=== PATIENT | female | born 1930 | race African-American/Black ===

== ENCOUNTER → 2016-10-09 | Outpatient (CLI) | payer MEDICARE | END | disposition home or self-care (01) | LOC: PCVCCLINIC 10:51 | PROVIDERS: ATTEND Internal Medicine Cardiovascular Disease | DX: I25.10 Atherosclerotic heart disease of native coronary artery without angina pectoris (principal); I10 Essential (primary) hypertension; E78.00 Pure hypercholesterolemia, unspecified; D64.9 Anemia, unspecified | CPT/HCPCS: 93005; G0463 ==

== ENCOUNTER → 2017-02-26 | Outpatient (CLI) | payer MEDICARE | END | disposition home or self-care (01) | LOC: PCVCCLINIC 13:24 | PROVIDERS: ATTEND Internal Medicine Cardiovascular Disease | DX: I25.10 Atherosclerotic heart disease of native coronary artery without angina pectoris (principal); E78.00 Pure hypercholesterolemia, unspecified; I10 Essential (primary) hypertension; D64.9 Anemia, unspecified; Z79.82 Long term (current) use of aspirin; Z79.899 Other long term (current) drug therapy; J44.9 Chronic obstructive pulmonary disease, unspecified; Z87.891 Personal history of nicotine dependence; R00.1 Bradycardia, unspecified | CPT/HCPCS: 36415; 93005; G0463 ==

== ENCOUNTER → 2017-07-28 | Outpatient (CLI) | payer MEDICARE ==
--- NOTE | 2017-07-28 10:35 | PCVCIMAG ---
APPROVED REPORT Study performed: 07/28/2017 09:08:47 EXAM: Comprehensive 2D, Doppler, and color-flow Echocardiogram Patient Location: Echo lab Status: routine BSA: 1.51 HR: 56 bpmBP: 136/70 mmHg Rhythm: Bradycardia Other Information Study Quality: Adequate Risk Factors: Cardiac Risk Factors: HTN Indications Dyspnea CAD 2D Dimensions LVEF(%): 64.35 (>50%) IVSd: 9.33 (7-11mm) LVDd: 39.64 mm PWd: 8.90 (7-11mm) LVDs: 25.92 (25-40mm) Left Atrium: 41.52 (27-40mm) Aortic Root: 28.34 mm LV Single Plane 4CH: 67.02 % LV Single Plane 2CH: 52.30 %Krishnan's LVEF: 59.66 % Biplane EF: 62.1 % Volumes Left Atrial Volume (Systole) Single Plane 4CH: 75.25 mLSingle Plane 2CH: 85.18 mL LA ESV Index: 55.00 mL/m2 Aortic Valve AoV Peak [place].: 1.23 m/s AO Peak Gr.: 6.05 mmHgLVOT Max P.02 mmHg LVOT Max V: 1.00 m/s AI Vmax: 3.50 m/s AI [place]: 2.09 m/s2 AI PHT: 486.93 ms Mitral Valve E/A Ratio: 1.4 MV Decel. Time: 180.63 ms MV E Max [place].: 0.99 m/s MV A [place].: 0.72 m/s MV PHT: 52.38 ms IVRT: 107.27 ms Pulmonary Valve PV Peak [place].: 0.76 m/sPV Peak Gr.: 2.30 mmHg Pulmonary Vein P Vein S: 0.35 m/sP Vein A: 0.30 m/s P Vein D: 0.37 m/sP Vein A Dur.: 128.0 msec P Vein S/D Ratio: 0.95 Tricuspid Valve TR Peak [place].: 3.03 m/s TR Peak Gr.: 36.84 mmHg Left Ventricle The left ventricle is normal size. There is normal LV segmental wall motion. There is normal left ventricular wall thickness. Left ventricular systolic function is normal. The left ventricular ejection fraction is within the normal range. LVEF is 60%. Grade I - abnormal relaxation pattern. Right Ventricle The right ventricle is normal size. The right ventricular systolic function is normal. Atria Left atrium is severely dilated. The right atrium size is normal. Aortic Valve Mild aortic valve sclerosis. Mild aortic regurgitation. There is no aortic valvular stenosis. Mitral Valve The mitral valve is normal in structure. Mild mitral regurgitation. No evidence of mitral valve stenosis. Tricuspid Valve The tricuspid valve is normal in structure. Mild to moderate tricuspid regurgitation with PAP of 44 mmHg. Pulmonic Valve The pulmonary valve is normal in structure. There is no pulmonic valvular regurgitation. Great Vessels The aortic root is normal in size. IVC is normal in size and collapses with >50% inspiration Pericardium There is no pericardial effusion. <Conclusion> The left ventricle is normal size. Left ventricular systolic function is normal. The right ventricle is normal size. Left atrium is severely dilated. Mild aortic valve sclerosis. Mild aortic regurgitation. Mild mitral regurgitation. Mild to moderate tricuspid regurgitation with PAP of 44 mmHg.
== END | disposition home or self-care (01) ==
LOC: PCVCIMAG 08:57
PROVIDERS: ATTEND Internal Medicine Cardiovascular Disease
DX: I08.3 Combined rheumatic disorders of mitral, aortic and tricuspid valves (principal); I25.10 Atherosclerotic heart disease of native coronary artery without angina pectoris; E78.00 Pure hypercholesterolemia, unspecified; I10 Essential (primary) hypertension; R55 Syncope and collapse; Z79.82 Long term (current) use of aspirin; Z79.899 Other long term (current) drug therapy
CPT/HCPCS: 80061; 93005; 93306; G0463